=== PATIENT | male | born 1940 | race Caucasian/White ===

== ENCOUNTER 2017-06-18 11:50 | Inpatient (IN) | payer MEDICARE, MEDICAID ==
[~2017-06-18] VITALS: Ht 182.9 cm; Wt 84.1 kg
[~2017-06-18 11:50] MED LIST: ALBU18HF2 IH; ALBU8.5H8 IH; APIX5TAB3 PO; BUDE10.2 INH; BUSP10TA10 PO; FLO0.4C PO; FURO-150 PO; GABA600T2 PO; IPRA3AMP9 IH; MUPI22OI30 NAS; NEBI5TAB5 PO; OMEP-84 PO; POTA10CA44 PO; PRED10TA23 PO; ROFL500T7 PO; VALS160T2 PO
[2017-06-18] MEDS ORDERED: methylPREDNISolone sod succ 125mg/2ml vial IV ONE ×2 (12:10→19:30)
[2017-06-18] MEDS ORDERED: LORazepam 2 mg/ml vial IV ONE ×2 (12:10→19:30)
[2017-06-18] MEDS ORDERED: albuterol 2.5 MG/3 ML nebule CONTNEB PRN (12:10)
[2017-06-18 12:25] LABS: ABG BASE EXCESS -3.4 mmol/L (-2.0-3.0); ABG HCO3 19.3 mmol/L (22.0-26.0); ABG OXYGEN SATURATION 97.1 % (95-98); ABG PCO2 (T) 29.7 mmHg (35.0-48.0); ABG PH (T) 7.434 (7.350-7.450); ABG PO2 (T) 93.3 mmHg (83-108); ALLEN'S TEST Positive; FCOHb 0.7 % (0.5-1.5); FLOW 6 L/min; FMetHb 0.2 % (0.3-1.12); FO2Hb 96.2 % (94-100); PATIENT TEMPERATURE 37.6
[2017-06-18 12:47] LABS: BASOPHILS % (AUTO) 0.1 % (0-1); EOSINOPHILS % (AUTO) 0 % (0-6); HEMATOCRIT 41.1 % (42.0-52.0); HEMOGLOBIN 13.7 g/dl (14.0-17.9); LYMPHOCYTES # (AUTO) 0.8 X10'3 (1.1-4.8); LYMPHOCYTES % (AUTO) 4.9 % (21-51); MEAN CORPUSCULAR HEMOGLOBIN 27.2 PG (27.0-31.0); MEAN CORPUSCULAR HGB CONC 33.3 % (33.0-36.5); MEAN CORPUSCULAR VOLUME 81.8 FL (78-98); MEAN PLATELET VOLUME 6.9 FL (7.4-10.4); MONOCYTES # (AUTO) 1.4 X10'3 (0-0.9); PLATELET COUNT 223 X10'3 (140-440); RED BLOOD COUNT 5.03 X10'6 (4.70-6.10); RED CELL DISTRIBUTION WIDTH 19.4 % (11.5-14.5); WHITE BLOOD COUNT 17.3 X10'3 (4.5-11.0)
[2017-06-18] MEDS ORDERED: levoFLOXACIN-Levaquin 750MG/D5 150 ML IV ONE (12:50)
[2017-06-18] MEDS ORDERED: furosemide 10 MG/1 ML 10ml inj IV ONE (12:50)
[2017-06-18 13:09] LABS: ALANINE AMINOTRANSFERASE 33 U/L (12-78); ALBUMIN 3.6 G/DL (3.4-5.0); ALKALINE PHOSPHATASE 79 IU/L (46-116); ANION GAP 14 (8-16); ASPARTATE AMINO TRANSFERASE 22 U/L (10-37); BILIRUBIN,TOTAL 0.7 MG/DL (0.1-1.0); BLOOD UREA NITROGEN 28 MG/DL (7-18); BUN/CREATININE RATIO 25.5 (5.4-32.0); CALCIUM 8.8 MG/DL (8.5-10.1); CHLORIDE 103 MMOL/L (99-107); GLUCOSE 147 MG/DL (70-104); POTASSIUM 3.4 MMOL/L (3.5-5.1); SODIUM 140 MMOL/L (135-145); TOTAL CARBON DIOXIDE 23.1 MMOL/L (24-32); TOTAL PROTEIN 7.1 G/DL (6.4-8.2); eGFR 65 ML/MIN
[2017-06-18 13:15] LABS: ANISOCYTOSIS 2+; PLATELET ESTIMATE NORMAL; TOTAL CELLS COUNTED 100
[2017-06-18 13:16] LABS: ELLIPTOCYTES FEW
[2017-06-18] MEDS ORDERED: non-formulary drug (Albuterol Sulfate (Ventolin Hfa) 2 PUFF) IH PRN (13:45)
[2017-06-18] MEDS ORDERED: albuterol 2.5 MG/3 ML nebule NEB PRN (13:45)
[2017-06-18 13:51] LABS: ABG BASE EXCESS -3.1 mmol/L (-2.0-3.0); ABG HCO3 20.2 mmol/L (22.0-26.0); ABG OXYGEN SATURATION 96.4 % (95-98); ABG PO2 (T) 86.7 mmHg (83-108); ALLEN'S TEST Positive; FCOHb 0.7 % (0.5-1.5); FLOW 32 L/min; FMetHb 0.2 % (0.3-1.12); FO2Hb 95.5 % (94-100); PATIENT TEMPERATURE 37.6; TIDAL VOLUME 771 mL
[2017-06-18] MEDS ORDERED: magnesium hydroxide 30ml (MOM) UD suspension PO PRN (14:40)
[2017-06-18] MEDS ORDERED: mag hydrox/Alum hydrox/simeth 30ml oral suspension PO PRN (14:40)
[2017-06-18] MEDS ORDERED: potassium Cl 40MEQ/NS 500ml 500 ML IV PRN ×4 (14:40→22:25)
[2017-06-18] MEDS ORDERED: HYDROcodone/acetaminophen 10/325mg tab PO PRN (14:40)
[2017-06-18] MEDS ORDERED: potassium Cl 20 mEq SR tablet PO PRN ×3 (14:40→22:25)
[2017-06-18] MEDS ORDERED: magnesium 2GM in 50ml NS 50 ML IV PRN ×2 (14:40→22:25)
[2017-06-18] MEDS ORDERED: magnesium 4gm in 100ml NS 100 ML IV PRN ×2 (14:40→22:25)
[2017-06-18] MEDS ORDERED: magnesium Cl slow-release 64mg tablet PO PRN (14:40)
[2017-06-18] MEDS ORDERED: acetaminophen 325mg tablet PO PRN (14:40)
[2017-06-18] MEDS ORDERED: HYDROcodone/acetaminophen 5mg/325mg tablet PO PRN (14:40)
[2017-06-18] MEDS: ipratropium/albuterol 3ml nebule IH SCH ×2 (15:00→20:00)
[2017-06-18 15:11] LABS: CLARITY,URINE SLIGHTLY CLOUDY (Clear); COLOR,URINE YELLOW (Yellow); GLUCOSE, URINE NEGATIVE (Neg); KETONES,URINE 15 mg/dl (Neg); LEUKOCYTE ESTERASE ,URINE NEGATIVE (Neg); NITRITES, URINE NEGATIVE (Neg); OCCULT BLOOD,URINE TRACE-LYSED (Neg); PH,URINE 5.5 (4.8-8.0); PROTEIN,URINE 30 mg/dl (Neg); UROBILINOGEN,URINE 0.2 E.U/dL (0.2-1.0)
[2017-06-18 15:19] LABS: UA COLLECTION TYPE FOLEY CATH
[2017-06-18 15:21] LABS: HYALINE CASTS >30 /LPF (NEGATIVE); MUCUS STRANDS MANY /LPF (Neg); SQUAMOUS EPITHELIAL CELL,UR FEW /LPF (FEW); TRANSITIONAL EPI CELLS,URINE FEW /HPF
[2017-06-18 15:22] LABS: COARSE GRANULAR CAST 0-3 /LPF (NEGATIVE); FINE GRANULAR CAST 0-3 /LPF (NEGATIVE)
[2017-06-18 15:23] LABS: BACTERIA,URINE 1+ /HPF (Neg); RBC,URINE 0-2 /HPF (0-2); WBC,URINE 0-4 /HPF (0-4)
[2017-06-18] MEDS ORDERED: ondansetron/PF 4mg/2ml inj IV ONE (15:35)
[2017-06-18] MEDS: gabapentin 300mg capsule PO SCH ×2 (17:32→21:08)
[2017-06-18 19:00] VITALS: BP 134/70
[2017-06-18] MEDS ORDERED: LORazepam 0.5 MG tablet PO PRN (19:30)
[2017-06-18] MEDS ORDERED: LIDOcaine Viscous 15ml cup TP PRN (19:30)
[2017-06-18] MEDS ORDERED: ipratropium/albuterol 3ml nebule NEB PRN (19:30)
[2017-06-18] MEDS ORDERED: hydrocortisone acetate 25mg rectal suppository RC PRN (19:30)
[2017-06-18] MEDS ORDERED: iohexol 350MG/ML 100ml bottle IV ONE (19:46)
[2017-06-18] MEDS ORDERED: pantoprazole 40mg Tablet.DR PO SCH (20:00)
[2017-06-18] MEDS ORDERED: furosemide 40mg/4ml inj IV SCH (20:00)
[2017-06-18] MEDS ORDERED: heparin, porcine 5000 units/ml vial SQ SCH (20:00)
[2017-06-18] MEDS: methylPREDNISolone sod succ 125mg/2ml vial IV SCH (21:07)
[2017-06-18] MEDS: pantoprazole 40 MG vial IV SCH (21:08)
[2017-06-18] MEDS: busPIRone 5mg tablet PO SCH (21:08)
[2017-06-18] MEDS: furosemide 40mg/4ml inj IV SCH (21:08)
[2017-06-18] MEDS: apixaban 5mg tablet PO SCH (21:08)
[2017-06-18] MEDS: mupirocin 2% ointment 22GM TP SCH (21:10)
[2017-06-18] MEDS ORDERED: metoclopramide 5 mg/ml inj IV PRN (21:30)
[2017-06-18] MEDS: metoclopramide 5 mg/ml inj IV PRN (21:39)
[2017-06-18 23:00] VITALS: BP 120/52
[2017-06-18] MEDS: ipratropium/albuterol 3ml nebule NEB PRN (23:53)
[2017-06-19 01:07] LABS: INR 1.1 INR; PROTHROMBIN TIME 10.9 SECONDS (9.0-12.0)
[2017-06-19 01:14] LABS: ALBUMIN 3.2 G/DL (3.4-5.0); ANION GAP 13 (8-16); BLOOD UREA NITROGEN 32 MG/DL (7-18); BUN/CREATININE RATIO 25.8 (5.4-32.0); CALCIUM 8.3 MG/DL (8.5-10.1); CHLORIDE 104 MMOL/L (99-107); CREATININE 1.24 MG/DL (0.60-1.10); GLUCOSE 246 MG/DL (70-104); MAGNESIUM 2.2 MG/DL (1.5-2.4); POTASSIUM 3.2 MMOL/L (3.5-5.1); SODIUM 141 MMOL/L (135-145); TOTAL CARBON DIOXIDE 23.6 MMOL/L (24-32); eGFR 57 ML/MIN
[2017-06-19 01:26] LABS: BASOPHILS % (AUTO) 0.2 % (0-1); EOSINOPHILS % (AUTO) 0 % (0-6); HEMATOCRIT 38.6 % (42.0-52.0); HEMOGLOBIN 12.6 g/dl (14.0-17.9); LYMPHOCYTES # (AUTO) 0.4 X10'3 (1.1-4.8); LYMPHOCYTES % (AUTO) 2.7 % (21-51); MEAN CORPUSCULAR HEMOGLOBIN 27.1 PG (27.0-31.0); MEAN CORPUSCULAR HGB CONC 32.7 % (33.0-36.5); MEAN CORPUSCULAR VOLUME 82.9 FL (78-98); MEAN PLATELET VOLUME 7.5 FL (7.4-10.4); MONOCYTES # (AUTO) 0.3 X10'3 (0-0.9); MONOCYTES % (AUTO) 1.8 % (2-12); NEUTROPHILS # (AUTO) 15.7 X10'3 (1.8-7.7); NEUTROPHILS % (AUTO) 95.3 % (42-75); PLATELET COUNT 189 X10'3 (140-440); RED BLOOD COUNT 4.66 X10'6 (4.70-6.10); RED CELL DISTRIBUTION WIDTH 17.9 % (11.5-14.5); WHITE BLOOD COUNT 16.4 X10'3 (4.5-11.0)
[2017-06-19] MEDS: LORazepam 0.5 MG tablet PO PRN ×2 (01:50→21:41)
[2017-06-19] MEDS: potassium Cl 20 mEq SR tablet PO PRN ×3 (01:50→12:05)
[2017-06-19] MEDS: methylPREDNISolone sod succ 125mg/2ml vial IV SCH ×4 (01:51→19:37)
[2017-06-19 03:00] VITALS: BP 119/57
[2017-06-19] MEDS: ipratropium/albuterol 3ml nebule NEB PRN (04:09)
[2017-06-19] MEDS: pantoprazole 40 MG vial IV SCH ×2 (07:41→19:32)
[2017-06-19] MEDS: furosemide 40mg/4ml inj IV SCH ×2 (07:43→19:32)
[2017-06-19] MEDS: gabapentin 300mg capsule PO SCH ×4 (08:00→21:42)
[2017-06-19] MEDS: mupirocin 2% ointment 22GM TP SCH ×2 (08:00→13:00)
[2017-06-19] MEDS: K and/or MAG REPLACEMENT MC SCH (08:00)
[2017-06-19] MEDS: levoFLOXACIN-Levaquin 750MG/D5 150 ML IV SCH (08:03)
[2017-06-19] MEDS ORDERED: iohexol 300mg/ml 100ml inj. ONE ×2 (08:55→16:39)
[2017-06-19] MEDS: ipratropium/albuterol 3ml nebule IH SCH ×4 (09:03→19:00)
[2017-06-19 11:00] VITALS: BP 138/67
[2017-06-19] MEDS: fluticasone/vilanterol 200mcg/25mcg inhaler IH SCH (11:08)
[2017-06-19] MEDS: metoclopramide 5 mg/ml inj IV PRN (11:48)
[2017-06-19] MEDS: tamsulosin 0.4mg capsule PO SCH (12:00)
[2017-06-19] MEDS: busPIRone 5mg tablet PO SCH ×2 (12:01→19:32)
[2017-06-19] MEDS: apixaban 5mg tablet PO SCH ×2 (12:04→19:32)
[2017-06-19] MEDS: potassium chloride 10mEq ER tablet PO SCH (12:05)
[2017-06-19] MEDS ORDERED: albuterol 2.5 MG/3 ML nebule NEB PRN (12:45)
[2017-06-19] MEDS: roflumilast 500mcg tablet PO SCH (13:26)
[2017-06-19] MEDS: piperacillin/tazo 4.5gm/100ml 100 ML IV SCH ×3 (13:33→16:00)
[2017-06-19 15:00] VITALS: BP 114/61
[2017-06-19] MEDS: ipratropium/albuterol 3ml nebule NEB SCH ×3 (15:47→23:34)
[2017-06-19 19:00] VITALS: BP 97/50
[2017-06-19] MEDS: lactobacillus rhamnosus 10,000 MMU CELLS/CAPSULE PO SCH (19:32)
[2017-06-19] MEDS: ondansetron/PF 4mg/2ml inj IV PRN (19:37)
[2017-06-19 23:00] VITALS: BP 104/53
[2017-06-20] VITALS (17 sets, daily range): BP systolic 86–119; BP diastolic 40–99
[2017-06-20] MEDS: piperacillin/tazo 4.5gm/100ml 100 ML IV SCH ×3 (00:50→16:43)
[2017-06-20] MEDS: methylPREDNISolone sod succ 125mg/2ml vial IV SCH ×3 (01:52→13:11)
[2017-06-20] MEDS: ipratropium/albuterol 3ml nebule NEB SCH ×6 (03:30→23:52)
[2017-06-20 06:51] LABS: BASOPHILS % (AUTO) 0 % (0-1); EOSINOPHILS # (AUTO) 0.3 X10'3 (0-0.9); EOSINOPHILS % (AUTO) 1.4 % (0-6); HEMOGLOBIN 13.4 g/dl (14.0-17.9); LYMPHOCYTES # (AUTO) 0.6 X10'3 (1.1-4.8); LYMPHOCYTES % (AUTO) 3.3 % (21-51); MEAN CORPUSCULAR HEMOGLOBIN 27.8 PG (27.0-31.0); MEAN CORPUSCULAR HGB CONC 33.5 % (33.0-36.5); MEAN CORPUSCULAR VOLUME 82.8 FL (78-98); MEAN PLATELET VOLUME 7.3 FL (7.4-10.4); MONOCYTES # (AUTO) 1.2 X10'3 (0-0.9); MONOCYTES % (AUTO) 6.6 % (2-12); NEUTROPHILS # (AUTO) 16.2 X10'3 (1.8-7.7); NEUTROPHILS % (AUTO) 88.7 % (42-75); PLATELET COUNT 231 X10'3 (140-440); RED BLOOD COUNT 4.83 X10'6 (4.70-6.10); RED CELL DISTRIBUTION WIDTH 19.1 % (11.5-14.5); WHITE BLOOD COUNT 18.3 X10'3 (4.5-11.0)
[2017-06-20 07:03] LABS: PROTHROMBIN TIME 10.1 SECONDS (9.0-12.0)
[2017-06-20 07:04] LABS: ALBUMIN 3.4 G/DL (3.4-5.0); ANION GAP 13 (8-16); BLOOD UREA NITROGEN 52 MG/DL (7-18); BUN/CREATININE RATIO 31.3 (5.4-32.0); CALCIUM 8.8 MG/DL (8.5-10.1); CHLORIDE 106 MMOL/L (99-107); CREATININE 1.66 MG/DL (0.60-1.10); GLUCOSE 163 MG/DL (70-104); MAGNESIUM 2.6 MG/DL (1.5-2.4); POTASSIUM 3.4 MMOL/L (3.5-5.1); SODIUM 144 MMOL/L (135-145); TOTAL CARBON DIOXIDE 24.9 MMOL/L (24-32); eGFR 40 ML/MIN
[2017-06-20] MEDS: fluticasone/vilanterol 200mcg/25mcg inhaler IH SCH (07:20)
[2017-06-20] MEDS: K and/or MAG REPLACEMENT MC SCH (08:00)
[2017-06-20] MEDS: levoFLOXACIN-Levaquin 750MG/D5 150 ML IV SCH (08:28)
[2017-06-20] MEDS: tamsulosin 0.4mg capsule PO SCH (08:29)
[2017-06-20] MEDS: busPIRone 5mg tablet PO SCH ×2 (08:29→21:08)
[2017-06-20] MEDS: lactobacillus rhamnosus 10,000 MMU CELLS/CAPSULE PO SCH ×2 (08:29→21:08)
[2017-06-20] MEDS: potassium chloride 10mEq ER tablet PO SCH (08:29)
[2017-06-20] MEDS: gabapentin 300mg capsule PO SCH ×4 (08:29→21:00)
[2017-06-20] MEDS: furosemide 40mg/4ml inj IV SCH (08:33)
[2017-06-20] MEDS: LORazepam 0.5 MG tablet PO PRN (08:43)
[2017-06-20] MEDS: roflumilast 500mcg tablet PO SCH (08:44)
[2017-06-20] MEDS: pantoprazole 40 MG vial IV SCH ×2 (08:49→21:07)
[2017-06-20] MEDS ORDERED: diltiazem 5mg/ml 5ml inj. IV ONE (12:15)
[2017-06-20] MEDS ORDERED: diltiazem-NS 100mg/100ml 100 ML IV SCH ×2 (12:15→18:20)
[2017-06-20] MEDS: apixaban 5mg tablet PO SCH ×2 (12:18→21:08)
[2017-06-20] MEDS: potassium Cl oral solution 20 MEQ/15 ML PO SCH ×3 (12:19→21:08)
[2017-06-20 14:25] LABS: C DIFF ANTIGEN NEGATIVE (NEGATIVE); C DIFF SPECIMEN=DIARRHEA? ACCEPTABLE; C DIFFICILE TOXINS A&B NEGATIVE (Neg)
[2017-06-21] VITALS (11 sets, daily range): BP systolic 99–130; BP diastolic 43–62
[2017-06-21] MEDS: metroNIDAZOLE-Flagyl 500mg/NS 100 ML IV SCH ×3 (00:25→15:28)
[2017-06-21] MEDS: ipratropium/albuterol 3ml nebule NEB SCH ×6 (03:42→23:41)
[2017-06-21 05:32] LABS: BASOPHILS % (AUTO) 0 % (0-1); EOSINOPHILS # (AUTO) 0.2 X10'3 (0-0.9); EOSINOPHILS % (AUTO) 1.2 % (0-6); HEMOGLOBIN 12.6 g/dl (14.0-17.9); INR 1.1 INR; LYMPHOCYTES # (AUTO) 0.9 X10'3 (1.1-4.8); LYMPHOCYTES % (AUTO) 4.9 % (21-51); MEAN CORPUSCULAR HEMOGLOBIN 27.8 PG (27.0-31.0); MEAN CORPUSCULAR VOLUME 81.7 FL (78-98); MEAN PLATELET VOLUME 7.5 FL (7.4-10.4); MONOCYTES # (AUTO) 1.4 X10'3 (0-0.9); NEUTROPHILS # (AUTO) 15.3 X10'3 (1.8-7.7); NEUTROPHILS % (AUTO) 85.9 % (42-75); PLATELET COUNT 234 X10'3 (140-440); PROTHROMBIN TIME 11.1 SECONDS (9.0-12.0); RED BLOOD COUNT 4.52 X10'6 (4.70-6.10); RED CELL DISTRIBUTION WIDTH 19.1 % (11.5-14.5); WHITE BLOOD COUNT 17.8 X10'3 (4.5-11.0)
[2017-06-21 05:45] LABS: ALBUMIN 3.1 G/DL (3.4-5.0); ANION GAP 16 (8-16); BLOOD UREA NITROGEN 67 MG/DL (7-18); CALCIUM 8.2 MG/DL (8.5-10.1); CHLORIDE 107 MMOL/L (99-107); CREATININE 1.97 MG/DL (0.60-1.10); GLUCOSE 166 MG/DL (70-104); MAGNESIUM 2.5 MG/DL (1.5-2.4); POTASSIUM 3.3 MMOL/L (3.5-5.1); SODIUM 144 MMOL/L (135-145); TOTAL CARBON DIOXIDE 20.8 MMOL/L (24-32); eGFR 33 ML/MIN
[2017-06-21] MEDS: gabapentin 300mg capsule PO SCH ×4 (07:26→19:49)
[2017-06-21] MEDS: levoFLOXACIN-Levaquin 750MG/D5 150 ML IV SCH (07:27)
[2017-06-21] MEDS ORDERED: furosemide 20 MG/2 ML vial IV SCH (08:00)
[2017-06-21] MEDS: K and/or MAG REPLACEMENT MC SCH (08:00)
[2017-06-21] MEDS: fluticasone/vilanterol 200mcg/25mcg inhaler IH SCH (08:12)
[2017-06-21] MEDS ORDERED: predniSONE 20 mg tablet PO SCH (08:30)
[2017-06-21] MEDS ORDERED: hydrocortisone acetate 25mg rectal suppository RC PRN (08:45)
[2017-06-21] MEDS: lactobacillus rhamnosus 10,000 MMU CELLS/CAPSULE PO SCH ×2 (08:50→19:48)
[2017-06-21] MEDS: pantoprazole 40 MG vial IV SCH ×2 (08:50→19:47)
[2017-06-21] MEDS: busPIRone 5mg tablet PO SCH ×2 (08:50→19:48)
[2017-06-21] MEDS: tamsulosin 0.4mg capsule PO SCH (08:50)
[2017-06-21] MEDS: apixaban 5mg tablet PO SCH ×2 (08:50→19:49)
[2017-06-21] MEDS: potassium chloride 10mEq ER tablet PO SCH (08:50)
[2017-06-21] MEDS: roflumilast 500mcg tablet PO SCH (09:05)
[2017-06-21] MEDS: diltiazem 30mg tablet PO SCH ×3 (10:40→19:48)
[2017-06-21] MEDS: potassium Cl oral solution 20 MEQ/15 ML PO SCH ×2 (15:28→19:48)
[2017-06-21] MEDS: ondansetron/PF 4mg/2ml inj IV PRN (19:48)
[2017-06-22] MEDS: potassium Cl oral solution 20 MEQ/15 ML PO SCH (00:04)
[2017-06-22] MEDS: metroNIDAZOLE-Flagyl 500mg/NS 100 ML IV SCH ×3 (00:04→17:26)
[2017-06-22 02:00] VITALS: BP 115/55
[2017-06-22] MEDS: diltiazem 30mg tablet PO SCH ×4 (02:25→21:50)
[2017-06-22] MEDS: ondansetron/PF 4mg/2ml inj IV PRN ×3 (02:25→18:54)
[2017-06-22] MEDS: ipratropium/albuterol 3ml nebule NEB SCH ×6 (03:00→23:29)
[2017-06-22 05:50] LABS: BASOPHILS % (AUTO) 0.1 % (0-1); EOSINOPHILS % (AUTO) 0 % (0-6); HEMATOCRIT 35.3 % (42.0-52.0); HEMOGLOBIN 11.6 g/dl (14.0-17.9); LYMPHOCYTES % (AUTO) 7.9 % (21-51); MEAN CORPUSCULAR HEMOGLOBIN 27.2 PG (27.0-31.0); MEAN CORPUSCULAR HGB CONC 33.1 % (33.0-36.5); MEAN CORPUSCULAR VOLUME 82.3 FL (78-98); MEAN PLATELET VOLUME 7.3 FL (7.4-10.4); MONOCYTES # (AUTO) 1.5 X10'3 (0-0.9); MONOCYTES % (AUTO) 12.1 % (2-12); NEUTROPHILS % (AUTO) 79.9 % (42-75); PLATELET COUNT 234 X10'3 (140-440); RED BLOOD COUNT 4.28 X10'6 (4.70-6.10); RED CELL DISTRIBUTION WIDTH 19.3 % (11.5-14.5); WHITE BLOOD COUNT 12.5 X10'3 (4.5-11.0)
[2017-06-22 06:00] VITALS: BP 117/63
[2017-06-22 06:03] LABS: INR 1.1 INR; PROTHROMBIN TIME 11.3 SECONDS (9.0-12.0)
[2017-06-22 06:34] LABS: ALBUMIN 2.9 G/DL (3.4-5.0); ANION GAP 13 (8-16); BLOOD UREA NITROGEN 70 MG/DL (7-18); BUN/CREATININE RATIO 37.6 (5.4-32.0); CALCIUM 8.5 MG/DL (8.5-10.1); CHLORIDE 111 MMOL/L (99-107); CREATININE 1.86 MG/DL (0.60-1.10); GLUCOSE 155 MG/DL (70-104); MAGNESIUM 2.8 MG/DL (1.5-2.4); POTASSIUM 3.7 MMOL/L (3.5-5.1); SODIUM 145 MMOL/L (135-145); TOTAL CARBON DIOXIDE 20.9 MMOL/L (24-32); eGFR 35 ML/MIN
[2017-06-22] MEDS: metoclopramide 5 mg/ml inj IV PRN ×2 (07:15→20:41)
[2017-06-22] MEDS: fluticasone/vilanterol 200mcg/25mcg inhaler IH SCH (07:47)
[2017-06-22] MEDS: gabapentin 300mg capsule PO SCH ×4 (08:00→21:00)
[2017-06-22] MEDS: K and/or MAG REPLACEMENT MC SCH (08:00)
[2017-06-22] MEDS: pantoprazole 40 MG vial IV SCH ×2 (08:27→20:49)
[2017-06-22] MEDS: levoFLOXACIN-Levaquin 750MG/D5 150 ML IV SCH (09:43)
[2017-06-22 11:00] VITALS: BP 121/53
[2017-06-22] MEDS: busPIRone 5mg tablet PO SCH ×2 (11:17→20:00)
[2017-06-22] MEDS: lactobacillus rhamnosus 10,000 MMU CELLS/CAPSULE PO SCH ×2 (11:17→21:49)
[2017-06-22] MEDS: potassium chloride 10mEq ER tablet PO SCH (11:17)
[2017-06-22] MEDS: roflumilast 500mcg tablet PO SCH (11:19)
[2017-06-22] MEDS: apixaban 5mg tablet PO SCH ×2 (11:19→21:49)
[2017-06-22] MEDS: tamsulosin 0.4mg capsule PO SCH (11:20)
[2017-06-22] MEDS: predniSONE 20 mg tablet PO SCH (11:21)
[2017-06-22] MEDS: simethicone 80mg chew tab PO SCH ×2 (12:32→20:58)
[2017-06-22 15:00] VITALS: BP 116/55
[2017-06-22 19:00] VITALS: BP 133/57
[2017-06-22 23:00] VITALS: BP 125/50
[2017-06-23] MEDS: metroNIDAZOLE-Flagyl 500mg/NS 100 ML IV SCH ×3 (00:56→15:56)
[2017-06-23] MEDS: diltiazem 30mg tablet PO SCH ×4 (02:00→20:00)
[2017-06-23] MEDS: ipratropium/albuterol 3ml nebule NEB SCH ×6 (02:59→22:36)
[2017-06-23 03:00] VITALS: BP 151/52
[2017-06-23 05:11] LABS: BASOPHILS % (AUTO) 0.2 % (0-1); EOSINOPHILS # (AUTO) 0.2 X10'3 (0-0.9); EOSINOPHILS % (AUTO) 1.5 % (0-6); HEMATOCRIT 35.7 % (42.0-52.0); HEMOGLOBIN 11.8 g/dl (14.0-17.9); LYMPHOCYTES % (AUTO) 9.1 % (21-51); MEAN CORPUSCULAR HEMOGLOBIN 27.4 PG (27.0-31.0); MEAN CORPUSCULAR HGB CONC 33.1 % (33.0-36.5); MEAN CORPUSCULAR VOLUME 82.6 FL (78-98); MEAN PLATELET VOLUME 7.5 FL (7.4-10.4); NEUTROPHILS # (AUTO) 8.7 X10'3 (1.8-7.7); NEUTROPHILS % (AUTO) 80.2 % (42-75); PLATELET COUNT 210 X10'3 (140-440); RED BLOOD COUNT 4.32 X10'6 (4.70-6.10); RED CELL DISTRIBUTION WIDTH 19.1 % (11.5-14.5); WHITE BLOOD COUNT 10.9 X10'3 (4.5-11.0)
[2017-06-23 05:23] LABS: INR 1.1 INR; PROTHROMBIN TIME 11.1 SECONDS (9.0-12.0)
[2017-06-23] MEDS: ondansetron/PF 4mg/2ml inj IV PRN ×3 (05:31→17:36)
[2017-06-23 05:43] LABS: ANION GAP 12 (8-16); BLOOD UREA NITROGEN 49 MG/DL (7-18); BUN/CREATININE RATIO 35.3 (5.4-32.0); CALCIUM 8.6 MG/DL (8.5-10.1); CHLORIDE 112 MMOL/L (99-107); CREATININE 1.39 MG/DL (0.60-1.10); GLUCOSE 144 MG/DL (70-104); MAGNESIUM 2.7 MG/DL (1.5-2.4); POTASSIUM 3.1 MMOL/L (3.5-5.1); SODIUM 147 MMOL/L (135-145); eGFR 50 ML/MIN
[2017-06-23 06:00] VITALS: BP 137/59
[2017-06-23] MEDS: fluticasone/vilanterol 200mcg/25mcg inhaler IH SCH (07:13)
[2017-06-23] MEDS ORDERED: potassium Cl 40MEQ/NS 500ml 500 ML IV PRN ×2 (07:55)
[2017-06-23] MEDS ORDERED: magnesium 4gm in 100ml NS 100 ML IV PRN (07:55)
[2017-06-23] MEDS ORDERED: LIDOcaine 1% 30ml vial 5 ML in potassium Cl 40MEQ/NS 500ml 500 ML IV ONE (07:55)
[2017-06-23] MEDS ORDERED: magnesium 2GM in 50ml NS 50 ML IV PRN (07:55)
[2017-06-23] MEDS: levoFLOXACIN-Levaquin 750MG/D5 150 ML IV SCH (07:58)
[2017-06-23] MEDS: pantoprazole 40 MG vial IV SCH ×2 (07:59→21:55)
[2017-06-23] MEDS: tamsulosin 0.4mg capsule PO SCH (08:00)
[2017-06-23] MEDS: potassium chloride 10mEq ER tablet PO SCH (08:00)
[2017-06-23] MEDS: lactobacillus rhamnosus 10,000 MMU CELLS/CAPSULE PO SCH ×2 (08:00→20:00)
[2017-06-23] MEDS: apixaban 5mg tablet PO SCH ×2 (08:00→21:55)
[2017-06-23] MEDS: busPIRone 5mg tablet PO SCH ×2 (08:00→21:55)
[2017-06-23] MEDS: gabapentin 300mg capsule PO SCH ×4 (08:00→21:00)
[2017-06-23] MEDS: roflumilast 500mcg tablet PO SCH (08:00)
[2017-06-23] MEDS: K and/or MAG REPLACEMENT MC SCH (08:00)
[2017-06-23] MEDS: simethicone 80mg chew tab PO SCH ×3 (08:08→21:55)
[2017-06-23] MEDS: predniSONE 20 mg tablet PO SCH (08:30)
[2017-06-23 11:00] VITALS: BP 127/59
[2017-06-23 15:00] VITALS: BP 141/60
[2017-06-23 19:00] VITALS: BP 139/53
[2017-06-23 23:00] VITALS: BP 138/60
[2017-06-24] MEDS: metroNIDAZOLE-Flagyl 500mg/NS 100 ML IV SCH ×3 (00:01→16:11)
[2017-06-24] MEDS: ondansetron/PF 4mg/2ml inj IV PRN ×3 (00:01→12:43)
[2017-06-24] MEDS: diltiazem 30mg tablet PO SCH ×4 (02:19→20:07)
[2017-06-24 02:53] LABS: BASOPHILS % (AUTO) 0.1 % (0-1); EOSINOPHILS # (AUTO) 0.3 X10'3 (0-0.9); HEMATOCRIT 36.1 % (42.0-52.0); HEMOGLOBIN 11.9 g/dl (14.0-17.9); LYMPHOCYTES # (AUTO) 1.1 X10'3 (1.1-4.8); MEAN CORPUSCULAR HEMOGLOBIN 27.2 PG (27.0-31.0); MEAN CORPUSCULAR HGB CONC 32.8 % (33.0-36.5); MEAN CORPUSCULAR VOLUME 82.8 FL (78-98); MEAN PLATELET VOLUME 7.5 FL (7.4-10.4); MONOCYTES # (AUTO) 0.8 X10'3 (0-0.9); MONOCYTES % (AUTO) 7.8 % (2-12); NEUTROPHILS # (AUTO) 7.9 X10'3 (1.8-7.7); NEUTROPHILS % (AUTO) 78.1 % (42-75); PLATELET COUNT 221 X10'3 (140-440); RED BLOOD COUNT 4.36 X10'6 (4.70-6.10); RED CELL DISTRIBUTION WIDTH 19.1 % (11.5-14.5); WHITE BLOOD COUNT 10.1 X10'3 (4.5-11.0)
[2017-06-24] MEDS: ipratropium/albuterol 3ml nebule NEB SCH ×6 (02:53→23:23)
[2017-06-24 03:00] VITALS: BP 145/62
[2017-06-24 03:09] LABS: MAGNESIUM 2.5 MG/DL (1.5-2.4)
[2017-06-24 05:38] LABS: ALBUMIN 2.9 G/DL (3.4-5.0); ANION GAP 9 (8-16); BLOOD UREA NITROGEN 29 MG/DL (7-18); BUN/CREATININE RATIO 26.4 (5.4-32.0); CHLORIDE 115 MMOL/L (99-107); GLUCOSE 123 MG/DL (70-104); SODIUM 150 MMOL/L (135-145); TOTAL CARBON DIOXIDE 25.8 MMOL/L (24-32); eGFR 65 ML/MIN
[2017-06-24 06:00] VITALS: BP 141/57
[2017-06-24] MEDS: levoFLOXACIN-Levaquin 750MG/D5 150 ML IV SCH (06:37)
[2017-06-24] MEDS: simethicone 80mg chew tab PO SCH ×3 (07:38→20:08)
[2017-06-24] MEDS: gabapentin 300mg capsule PO SCH ×4 (08:00→20:09)
[2017-06-24] MEDS: potassium chloride 10mEq ER tablet PO SCH (08:00)
[2017-06-24] MEDS: fluticasone/vilanterol 200mcg/25mcg inhaler IH SCH (08:00)
[2017-06-24] MEDS: lactobacillus rhamnosus 10,000 MMU CELLS/CAPSULE PO SCH ×2 (08:00→20:08)
[2017-06-24] MEDS: tamsulosin 0.4mg capsule PO SCH (08:00)
[2017-06-24] MEDS: busPIRone 5mg tablet PO SCH ×2 (08:00→20:00)
[2017-06-24] MEDS: roflumilast 500mcg tablet PO SCH (08:00)
[2017-06-24] MEDS: apixaban 5mg tablet PO SCH (08:00)
[2017-06-24] MEDS: pantoprazole 40 MG vial IV SCH ×2 (08:29→20:10)
[2017-06-24] MEDS: predniSONE 20 mg tablet PO SCH (08:30)
[2017-06-24] MEDS: K and/or MAG REPLACEMENT MC SCH (08:40)
[2017-06-24] MEDS: LIDOcaine 1% 30ml vial 5 ML in potassium Cl 40MEQ/NS 500ml 500 ML IV PRN ×2 (09:43→14:56)
[2017-06-24 11:00] VITALS: BP 145/60
[2017-06-24] MEDS ORDERED: metoprolol tartrate 1mg/ml inj IV PRN (14:00)
[2017-06-24] MEDS: proCHLORperazine 10 MG/2 ml inj IV PRN (14:10)
[2017-06-24] MEDS: normal saline 1000ml 1,000 ML IV SCH (14:50)
[2017-06-24 15:00] VITALS: BP 139/55
[2017-06-24 15:18] LABS: ALBUMIN 2.7 G/DL (3.4-5.0); ANION GAP 8 (8-16); BLOOD UREA NITROGEN 25 MG/DL (7-18); CALCIUM 8.7 MG/DL (8.5-10.1); CHLORIDE 115 MMOL/L (99-107); CREATININE 1.04 MG/DL (0.60-1.10); GLUCOSE 110 MG/DL (70-104); POTASSIUM 3.2 MMOL/L (3.5-5.1); SODIUM 149 MMOL/L (135-145); TOTAL CARBON DIOXIDE 26.1 MMOL/L (24-32); eGFR 69 ML/MIN
[2017-06-24] MEDS ORDERED: DILT60TA3 (16:02)
[2017-06-24 19:00] VITALS: BP 157/63
[2017-06-24 23:00] VITALS: BP 145/62
[2017-06-25] VITALS (7 sets, daily range): BP systolic 138–154; BP diastolic 53–74
[2017-06-25] MEDS: diltiazem 30mg tablet PO SCH ×4 (02:35→20:18)
[2017-06-25] MEDS: ipratropium/albuterol 3ml nebule NEB SCH ×6 (03:00→23:46)
[2017-06-25 05:35] LABS: BASOPHILS % (AUTO) 0.3 % (0-1); EOSINOPHILS # (AUTO) 0.3 X10'3 (0-0.9); HEMATOCRIT 33.3 % (42.0-52.0); HEMOGLOBIN 10.8 g/dl (14.0-17.9); LYMPHOCYTES # (AUTO) 1.2 X10'3 (1.1-4.8); LYMPHOCYTES % (AUTO) 12.6 % (21-51); MEAN CORPUSCULAR HEMOGLOBIN 27.4 PG (27.0-31.0); MEAN CORPUSCULAR HGB CONC 32.6 % (33.0-36.5); MEAN PLATELET VOLUME 7.3 FL (7.4-10.4); MONOCYTES # (AUTO) 0.8 X10'3 (0-0.9); MONOCYTES % (AUTO) 8.1 % (2-12); NEUTROPHILS # (AUTO) 7.2 X10'3 (1.8-7.7); PLATELET COUNT 206 X10'3 (140-440); RED BLOOD COUNT 3.96 X10'6 (4.70-6.10); RED CELL DISTRIBUTION WIDTH 18.9 % (11.5-14.5); WHITE BLOOD COUNT 9.4 X10'3 (4.5-11.0)
[2017-06-25 05:59] LABS: ALANINE AMINOTRANSFERASE 36 U/L (12-78); ALBUMIN 2.5 G/DL (3.4-5.0); ALKALINE PHOSPHATASE 47 IU/L (46-116); ANION GAP 10 (8-16); ASPARTATE AMINO TRANSFERASE 23 U/L (10-37); BILIRUBIN,TOTAL 0.5 MG/DL (0.1-1.0); BLOOD UREA NITROGEN 17 MG/DL (7-18); BUN/CREATININE RATIO 17.9 (5.4-32.0); CALCIUM 8.2 MG/DL (8.5-10.1); CHLORIDE 115 MMOL/L (99-107); CREATININE 0.95 MG/DL (0.60-1.10); GLUCOSE 113 MG/DL (70-104); SODIUM 150 MMOL/L (135-145); TOTAL CARBON DIOXIDE 25.4 MMOL/L (24-32); eGFR 77 ML/MIN
[2017-06-25] MEDS: normal saline 1000ml 1,000 ML IV SCH ×4 (06:27→20:26)
[2017-06-25] MEDS: levoFLOXACIN-Levaquin 750MG/D5 150 ML IV SCH (06:57)
[2017-06-25] MEDS: pantoprazole 40 MG vial IV SCH ×2 (07:00→20:18)
[2017-06-25] MEDS: fluticasone/vilanterol 200mcg/25mcg inhaler IH SCH (08:00)
[2017-06-25] MEDS: simethicone 80mg chew tab PO SCH ×3 (08:00→20:18)
[2017-06-25] MEDS: tamsulosin 0.4mg capsule PO SCH (08:00)
[2017-06-25] MEDS: potassium chloride 10mEq ER tablet PO SCH (08:00)
[2017-06-25] MEDS: K and/or MAG REPLACEMENT MC SCH (08:00)
[2017-06-25] MEDS: gabapentin 300mg capsule PO SCH ×4 (08:00→20:27)
[2017-06-25] MEDS: lactobacillus rhamnosus 10,000 MMU CELLS/CAPSULE PO SCH ×2 (08:00→20:18)
[2017-06-25] MEDS: roflumilast 500mcg tablet PO SCH (08:00)
[2017-06-25] MEDS: busPIRone 5mg tablet PO SCH ×2 (08:00→20:00)
[2017-06-25] MEDS: metroNIDAZOLE-Flagyl 500mg/NS 100 ML IV SCH ×3 (08:30→16:03)
[2017-06-25] MEDS: predniSONE 20 mg tablet PO SCH (08:30)
[2017-06-25] MEDS: ondansetron/PF 4mg/2ml inj IV PRN (08:57)
[2017-06-25] MEDS ORDERED: ceFAZolin 1000mg inj ONE (13:54)
[2017-06-25] MEDS ORDERED: BUPIVAcaine/PF 2.5 mg/ml (0.25%) 30ml vial ONE (13:54)
[2017-06-25 14:41] LABS: ISTAT ANION GAP 6 (8-12); ISTAT BUN 13 mg/dL (6-19); ISTAT CL 115 mmol/L (99-107); ISTAT CREATININE 0.8 mg/dL (0.8-1.3); ISTAT GLUCOSE 88 mg/dL (70-104); ISTAT HGB 10.2 g/dl (14.0-18.0); ISTAT Hct 30 %PCV (42-52); ISTAT IONIZED CALCIUM 1.22 mmol/L (1.03-1.32); ISTAT K 4.5 mmol/L (3.5-5.1); ISTAT NA 147 mmol/L (135-145); ISTAT TOTAL CO2 26 mmol/L (24-32); ISTAT eGFR > 90 ML/MIN; POC BUN/CREATININE RATIO 16.3 (5.4-32.0)
[2017-06-25] MEDS: temazepam 15mg capsule PO PRN (21:09)
[2017-06-26] MEDS: ondansetron/PF 4mg/2ml inj IV PRN ×3 (00:10→21:33)
[2017-06-26] MEDS: metroNIDAZOLE-Flagyl 500mg/NS 100 ML IV SCH ×2 (00:10→08:31)
[2017-06-26] MEDS: diltiazem 30mg tablet PO SCH ×4 (02:43→19:05)
[2017-06-26 03:00] VITALS: BP 138/63
[2017-06-26] MEDS: ipratropium/albuterol 3ml nebule NEB SCH ×6 (03:00→23:47)
[2017-06-26 05:39] LABS: BASOPHILS % (AUTO) 0.4 % (0-1); EOSINOPHILS # (AUTO) 0.3 X10'3 (0-0.9); EOSINOPHILS % (AUTO) 3.7 % (0-6); HEMATOCRIT 33.7 % (42.0-52.0); LYMPHOCYTES % (AUTO) 11.4 % (21-51); MEAN CORPUSCULAR HEMOGLOBIN 27.4 PG (27.0-31.0); MEAN CORPUSCULAR HGB CONC 32.7 % (33.0-36.5); MEAN CORPUSCULAR VOLUME 83.8 FL (78-98); MEAN PLATELET VOLUME 7.4 FL (7.4-10.4); MONOCYTES # (AUTO) 0.8 X10'3 (0-0.9); MONOCYTES % (AUTO) 8.4 % (2-12); NEUTROPHILS # (AUTO) 6.8 X10'3 (1.8-7.7); NEUTROPHILS % (AUTO) 76.1 % (42-75); PLATELET COUNT 182 X10'3 (140-440); RED BLOOD COUNT 4.02 X10'6 (4.70-6.10); WHITE BLOOD COUNT 8.9 X10'3 (4.5-11.0)
[2017-06-26 05:45] LABS: ALANINE AMINOTRANSFERASE 39 U/L (12-78); ALBUMIN 2.4 G/DL (3.4-5.0); ALBUMIN/GLOBULIN RATIO 0.9 (1.1-1.5); ALKALINE PHOSPHATASE 46 IU/L (46-116); ANION GAP 8 (8-16); ASPARTATE AMINO TRANSFERASE 26 U/L (10-37); BILIRUBIN,TOTAL 0.5 MG/DL (0.1-1.0); BLOOD UREA NITROGEN 10 MG/DL (7-18); CALCIUM 7.9 MG/DL (8.5-10.1); CHLORIDE 116 MMOL/L (99-107); CREATININE 0.83 MG/DL (0.60-1.10); GLUCOSE 96 MG/DL (70-104); MAGNESIUM 1.7 MG/DL (1.5-2.4); SODIUM 150 MMOL/L (135-145); TOTAL CARBON DIOXIDE 26.4 MMOL/L (24-32); eGFR 90 ML/MIN
[2017-06-26 06:00] VITALS: BP 151/61
[2017-06-26 06:30] LABS: POTASSIUM 2.9 MMOL/L (3.5-5.1)
[2017-06-26] MEDS: normal saline 1000ml 1,000 ML IV SCH ×3 (06:50→21:34)
[2017-06-26] MEDS ORDERED: LIDOcaine 1% 30ml vial 5 ML in potassium Cl 40MEQ/NS 500ml 500 ML IV PRN (07:10)
[2017-06-26] MEDS: busPIRone 5mg tablet PO SCH ×2 (08:00→20:00)
[2017-06-26] MEDS: gabapentin 300mg capsule PO SCH ×4 (08:00→21:00)
[2017-06-26] MEDS: lactobacillus rhamnosus 10,000 MMU CELLS/CAPSULE PO SCH ×2 (08:00→19:05)
[2017-06-26] MEDS: tamsulosin 0.4mg capsule PO SCH (08:00)
[2017-06-26] MEDS: roflumilast 500mcg tablet PO SCH (08:00)
[2017-06-26] MEDS: K and/or MAG REPLACEMENT MC SCH (08:00)
[2017-06-26] MEDS: apixaban 5mg tablet PO SCH (08:00)
[2017-06-26] MEDS: potassium chloride 10mEq ER tablet PO SCH (08:00)
[2017-06-26] MEDS: simethicone 80mg chew tab PO SCH ×3 (08:00→21:32)
[2017-06-26] MEDS: predniSONE 20 mg tablet PO SCH (08:30)
[2017-06-26] MEDS: pantoprazole 40 MG vial IV SCH ×2 (08:45→19:06)
[2017-06-26] MEDS: proCHLORperazine 10 MG/2 ml inj IV PRN (08:47)
[2017-06-26] MEDS ORDERED: potassium Cl 20 mEq SR tablet PO PRN ×2 (09:40)
[2017-06-26] MEDS ORDERED: potassium Cl 40MEQ/NS 500ml 500 ML IV PRN (09:40)
[2017-06-26] MEDS ORDERED: magnesium 2GM in 50ml NS 50 ML IV PRN (09:40)
[2017-06-26] MEDS ORDERED: magnesium 4gm in 100ml NS 100 ML IV PRN (09:40)
[2017-06-26] MEDS ORDERED: magnesium Cl slow-release 64mg tablet PO PRN (09:40)
[2017-06-26] MEDS: levoFLOXACIN-Levaquin 750MG/D5 150 ML IV SCH (09:57)
[2017-06-26] MEDS ORDERED: LIDOcaine 1% 30ml vial 5 ML in potassium Cl 40MEQ/NS 500ml 500 ML IV ONE (10:35)
[2017-06-26] MEDS ORDERED: heparin 10,000 units/1 ML INJ IV ONE (10:45)
[2017-06-26 11:00] VITALS: BP 172/61
[2017-06-26 11:36] LABS: BASOPHILS % (AUTO) 0.3 % (0-1); EOSINOPHILS # (AUTO) 0.3 X10'3 (0-0.9); EOSINOPHILS % (AUTO) 2.7 % (0-6); HEMATOCRIT 33.9 % (42.0-52.0); LYMPHOCYTES # (AUTO) 1.1 X10'3 (1.1-4.8); MEAN CORPUSCULAR HEMOGLOBIN 27.2 PG (27.0-31.0); MEAN CORPUSCULAR HGB CONC 32.3 % (33.0-36.5); MEAN CORPUSCULAR VOLUME 84.1 FL (78-98); MEAN PLATELET VOLUME 7.3 FL (7.4-10.4); MONOCYTES # (AUTO) 0.7 X10'3 (0-0.9); MONOCYTES % (AUTO) 7.1 % (2-12); NEUTROPHILS # (AUTO) 8.2 X10'3 (1.8-7.7); NEUTROPHILS % (AUTO) 78.9 % (42-75); PLATELET COUNT 190 X10'3 (140-440); RED BLOOD COUNT 4.03 X10'6 (4.70-6.10); RED CELL DISTRIBUTION WIDTH 18.5 % (11.5-14.5); WHITE BLOOD COUNT 10.4 X10'3 (4.5-11.0)
[2017-06-26 11:41] LABS: INR 1.1 INR
[2017-06-26 15:00] VITALS: BP 142/63
[2017-06-26] MEDS: potassium Cl 40MEQ/NS 500ml 500 ML IV PRN (15:19)
[2017-06-26 19:00] VITALS: BP 149/54
[2017-06-26] MEDS: heparin 10,000 units/1 ML INJ IV PRN (19:11)
[2017-06-26] MEDS: temazepam 15mg capsule PO PRN (21:32)
[2017-06-26] MEDS: diatr meglu/diatrizoate 30ml oral sol.-(3 dose) bottle PO SCH (21:34)
[2017-06-26 23:00] VITALS: BP 158/65
[2017-06-27] MEDS: diltiazem 30mg tablet PO SCH ×4 (01:40→20:31)
[2017-06-27 02:00] LABS: BASOPHILS % (AUTO) 0.5 % (0-1); EOSINOPHILS # (AUTO) 0.3 X10'3 (0-0.9); EOSINOPHILS % (AUTO) 3.2 % (0-6); HEMATOCRIT 33.8 % (42.0-52.0); LYMPHOCYTES # (AUTO) 0.9 X10'3 (1.1-4.8); LYMPHOCYTES % (AUTO) 11.7 % (21-51); MEAN CORPUSCULAR HEMOGLOBIN 27.3 PG (27.0-31.0); MEAN CORPUSCULAR HGB CONC 32.6 % (33.0-36.5); MEAN CORPUSCULAR VOLUME 83.8 FL (78-98); MEAN PLATELET VOLUME 7.2 FL (7.4-10.4); MONOCYTES # (AUTO) 0.7 X10'3 (0-0.9); MONOCYTES % (AUTO) 8.2 % (2-12); NEUTROPHILS # (AUTO) 6.1 X10'3 (1.8-7.7); NEUTROPHILS % (AUTO) 76.4 % (42-75); PLATELET COUNT 177 X10'3 (140-440); RED BLOOD COUNT 4.03 X10'6 (4.70-6.10); RED CELL DISTRIBUTION WIDTH 19.1 % (11.5-14.5)
[2017-06-27 02:14] LABS: ALANINE AMINOTRANSFERASE 35 U/L (12-78); ALBUMIN 2.4 G/DL (3.4-5.0); ALKALINE PHOSPHATASE 51 IU/L (46-116); ANION GAP 10 (8-16); ASPARTATE AMINO TRANSFERASE 22 U/L (10-37); BILIRUBIN,TOTAL 0.5 MG/DL (0.1-1.0); BLOOD UREA NITROGEN 7 MG/DL (7-18); BUN/CREATININE RATIO 8.3 (5.4-32.0); CALCIUM 7.7 MG/DL (8.5-10.1); CHLORIDE 113 MMOL/L (99-107); CREATININE 0.84 MG/DL (0.60-1.10); GLUCOSE 104 MG/DL (70-104); MAGNESIUM 1.6 MG/DL (1.5-2.4); SODIUM 148 MMOL/L (135-145); TOTAL CARBON DIOXIDE 24.7 MMOL/L (24-32); TOTAL PROTEIN 4.9 G/DL (6.4-8.2); eGFR 89 ML/MIN
[2017-06-27 02:16] LABS: POTASSIUM 2.9 MMOL/L (3.5-5.1)
[2017-06-27] MEDS: normal saline 1000ml 1,000 ML IV SCH ×4 (02:50→20:32)
[2017-06-27 03:00] VITALS: BP 146/56
[2017-06-27] MEDS: ipratropium/albuterol 3ml nebule NEB SCH ×6 (03:00→23:00)
[2017-06-27] MEDS: potassium Cl 40MEQ/NS 500ml 500 ML IV PRN (03:05)
[2017-06-27] MEDS: heparin 10,000 units/1 ML INJ IV PRN (03:20)
[2017-06-27] MEDS: diatr meglu/diatrizoate 30ml oral sol.-(3 dose) bottle PO SCH ×2 (07:30→20:32)
[2017-06-27] MEDS: fluticasone/vilanterol 200mcg/25mcg inhaler IH SCH ×2 (07:42→10:34)
[2017-06-27 08:00] VITALS: BP 155/65
[2017-06-27] MEDS: simethicone 80mg chew tab PO SCH ×3 (08:00→20:31)
[2017-06-27] MEDS: tamsulosin 0.4mg capsule PO SCH (08:00)
[2017-06-27] MEDS: gabapentin 300mg capsule PO SCH ×4 (08:00→20:32)
[2017-06-27] MEDS: lactobacillus rhamnosus 10,000 MMU CELLS/CAPSULE PO SCH ×2 (08:00→20:31)
[2017-06-27] MEDS: busPIRone 5mg tablet PO SCH ×2 (08:00→20:00)
[2017-06-27] MEDS: K and/or MAG REPLACEMENT MC SCH (08:00)
[2017-06-27] MEDS: potassium chloride 10mEq ER tablet PO SCH (08:00)
[2017-06-27] MEDS: ondansetron/PF 4mg/2ml inj IV PRN ×2 (08:02→13:44)
[2017-06-27] MEDS ORDERED: iohexol 300mg/ml 100ml inj. ONE (09:21)
[2017-06-27] MEDS: predniSONE 20 mg tablet PO SCH (10:50)
[2017-06-27] MEDS: roflumilast 500mcg tablet PO SCH (10:50)
[2017-06-27] MEDS: pantoprazole 40 MG vial IV SCH ×2 (10:55→20:30)
[2017-06-27 11:00] VITALS: BP 148/75
[2017-06-27 15:00] VITALS: BP 165/62
[2017-06-27] MEDS ORDERED: benzocaine/menthol oral lozeng 1 EACH BOX MM PRN (16:30)
[2017-06-27 19:00] VITALS: BP 150/58
[2017-06-27] MEDS: proCHLORperazine 10 MG/2 ml inj IV PRN (19:26)
[2017-06-27] MEDS: temazepam 15mg capsule PO PRN (20:31)
[2017-06-27 23:00] VITALS: BP 144/61
[2017-06-28] MEDS: ondansetron/PF 4mg/2ml inj IV PRN ×2 (00:23→20:23)
[2017-06-28] MEDS: diltiazem 30mg tablet PO SCH ×4 (02:00→20:24)
[2017-06-28] MEDS: heparin 10,000 units/1 ML INJ IV PRN (02:03)
[2017-06-28 03:00] VITALS: BP 140/58
[2017-06-28] MEDS: normal saline 1000ml 1,000 ML IV SCH ×3 (03:21→18:50)
[2017-06-28] MEDS: ipratropium/albuterol 3ml nebule NEB SCH ×5 (03:25→22:42)
[2017-06-28 06:00] VITALS: BP 147/59
[2017-06-28] MEDS: fluticasone/vilanterol 200mcg/25mcg inhaler IH SCH (07:51)
[2017-06-28] MEDS: K and/or MAG REPLACEMENT MC SCH (08:00)
[2017-06-28] MEDS: roflumilast 500mcg tablet PO SCH (08:00)
[2017-06-28] MEDS: gabapentin 300mg capsule PO SCH ×3 (08:00→20:26)
[2017-06-28] MEDS: tamsulosin 0.4mg capsule PO SCH (08:23)
[2017-06-28] MEDS: pantoprazole 40 MG vial IV SCH ×2 (08:23→20:23)
[2017-06-28] MEDS: predniSONE 20 mg tablet PO SCH (08:23)
[2017-06-28] MEDS: lactobacillus rhamnosus 10,000 MMU CELLS/CAPSULE PO SCH ×2 (08:24→20:00)
[2017-06-28] MEDS: simethicone 80mg chew tab PO SCH ×3 (08:25→20:24)
[2017-06-28] MEDS: potassium chloride 10mEq ER tablet PO SCH (08:25)
[2017-06-28] MEDS: busPIRone 5mg tablet PO SCH ×2 (08:25→20:24)
[2017-06-28 08:50] LABS: BASOPHILS # (AUTO) 0.1 X10'3 (0-0.2); BASOPHILS % (AUTO) 0.6 % (0-1); EOSINOPHILS # (AUTO) 0.4 X10'3 (0-0.9); EOSINOPHILS % (AUTO) 3.6 % (0-6); HEMATOCRIT 33.7 % (42.0-52.0); HEMOGLOBIN 10.9 g/dl (14.0-17.9); LYMPHOCYTES # (AUTO) 1.4 X10'3 (1.1-4.8); MEAN CORPUSCULAR HEMOGLOBIN 27.2 PG (27.0-31.0); MEAN CORPUSCULAR HGB CONC 32.5 % (33.0-36.5); MEAN CORPUSCULAR VOLUME 83.7 FL (78-98); MEAN PLATELET VOLUME 7.2 FL (7.4-10.4); MONOCYTES # (AUTO) 0.9 X10'3 (0-0.9); MONOCYTES % (AUTO) 8.1 % (2-12); NEUTROPHILS # (AUTO) 8.1 X10'3 (1.8-7.7); NEUTROPHILS % (AUTO) 74.7 % (42-75); PLATELET COUNT 182 X10'3 (140-440); RED BLOOD COUNT 4.02 X10'6 (4.70-6.10); RED CELL DISTRIBUTION WIDTH 19.1 % (11.5-14.5); WHITE BLOOD COUNT 10.9 X10'3 (4.5-11.0)
[2017-06-28 09:08] LABS: ALANINE AMINOTRANSFERASE 30 U/L (12-78); ALBUMIN 2.4 G/DL (3.4-5.0); ALBUMIN/GLOBULIN RATIO 0.8 (1.1-1.5); ALKALINE PHOSPHATASE 53 IU/L (46-116); ANION GAP 10 (8-16); ASPARTATE AMINO TRANSFERASE 16 U/L (10-37); BILIRUBIN,TOTAL 0.5 MG/DL (0.1-1.0); BLOOD UREA NITROGEN 5 MG/DL (7-18); BUN/CREATININE RATIO 6.8 (5.4-32.0); CALCIUM 7.7 MG/DL (8.5-10.1); CHLORIDE 111 MMOL/L (99-107); CREATININE 0.73 MG/DL (0.60-1.10); GLUCOSE 95 MG/DL (70-104); MAGNESIUM 1.5 MG/DL (1.5-2.4); SODIUM 146 MMOL/L (135-145); TOTAL PROTEIN 5.4 G/DL (6.4-8.2); eGFR > 90 ML/MIN
[2017-06-28 09:11] LABS: POTASSIUM 2.8 MMOL/L (3.5-5.1)
[2017-06-28] MEDS ORDERED: magnesium 4gm in 100ml NS 100 ML IV PRN (09:20)
[2017-06-28] MEDS ORDERED: potassium Cl 20 mEq SR tablet PO PRN ×2 (09:20)
[2017-06-28] MEDS ORDERED: magnesium 2GM in 50ml NS 50 ML IV PRN (09:20)
[2017-06-28] MEDS ORDERED: potassium Cl 40MEQ/NS 500ml 500 ML IV PRN ×2 (09:20)
[2017-06-28] MEDS ORDERED: magnesium 2GM in 50ml NS 50 ML IV ONE (09:20)
[2017-06-28] MEDS ORDERED: LIDOcaine 1% 30ml vial 5 ML in potassium Cl 40MEQ/NS 500ml 500 ML IV PRN (09:35)
[2017-06-28] MEDS ORDERED: LIDOcaine 1% 30ml vial 5 ML in potassium Cl 40MEQ/NS 500ml 500 ML IV ONE ×5 (09:40→14:00)
[2017-06-28] MEDS ORDERED: BARIUM SULFATE 340 ML SUSP.RECON***PROCEDURE AREA ONLY**DONT ENTER PO ONE (09:58)
[2017-06-28] MEDS: ipratropium/albuterol 3ml nebule NEB PRN (11:34)
[2017-06-28 15:00] VITALS: BP 158/61
[2017-06-28 19:00] VITALS: BP 156/79
[2017-06-28] MEDS: apixaban 5mg tablet PO SCH (20:24)
[2017-06-28] MEDS: temazepam 15mg capsule PO PRN (20:24)
[2017-06-28 23:00] VITALS: BP 138/59
[2017-06-29] MEDS: normal saline 1000ml 1,000 ML IV SCH ×3 (01:30→14:50)
[2017-06-29 01:37] LABS: ALANINE AMINOTRANSFERASE 26 U/L (12-78); ALBUMIN 2.3 G/DL (3.4-5.0); ALBUMIN/GLOBULIN RATIO 0.9 (1.1-1.5); ALKALINE PHOSPHATASE 51 IU/L (46-116); ANION GAP 9 (8-16); ASPARTATE AMINO TRANSFERASE 14 U/L (10-37); BILIRUBIN,TOTAL 0.3 MG/DL (0.1-1.0); BLOOD UREA NITROGEN 5 MG/DL (7-18); BUN/CREATININE RATIO 6.2 (5.4-32.0); CALCIUM 7.9 MG/DL (8.5-10.1); CHLORIDE 113 MMOL/L (99-107); CREATININE 0.81 MG/DL (0.60-1.10); GLUCOSE 148 MG/DL (70-104); MAGNESIUM 1.8 MG/DL (1.5-2.4); POTASSIUM 3.3 MMOL/L (3.5-5.1); SODIUM 147 MMOL/L (135-145); TOTAL CARBON DIOXIDE 25.4 MMOL/L (24-32); TOTAL PROTEIN 4.9 G/DL (6.4-8.2); eGFR > 90 ML/MIN
[2017-06-29 02:01] LABS: BASOPHILS % (AUTO) 0.2 % (0-1); EOSINOPHILS # (AUTO) 0.1 X10'3 (0-0.9); EOSINOPHILS % (AUTO) 1.4 % (0-6); HEMATOCRIT 30.4 % (42.0-52.0); HEMOGLOBIN 10.1 g/dl (14.0-17.9); LYMPHOCYTES # (AUTO) 0.7 X10'3 (1.1-4.8); LYMPHOCYTES % (AUTO) 7.2 % (21-51); MEAN CORPUSCULAR HEMOGLOBIN 27.7 PG (27.0-31.0); MEAN CORPUSCULAR HGB CONC 33.2 % (33.0-36.5); MEAN CORPUSCULAR VOLUME 83.4 FL (78-98); MEAN PLATELET VOLUME 7.5 FL (7.4-10.4); MONOCYTES # (AUTO) 0.7 X10'3 (0-0.9); MONOCYTES % (AUTO) 7.3 % (2-12); NEUTROPHILS # (AUTO) 8.6 X10'3 (1.8-7.7); NEUTROPHILS % (AUTO) 83.9 % (42-75); PLATELET COUNT 185 X10'3 (140-440); RED BLOOD COUNT 3.64 X10'6 (4.70-6.10); WHITE BLOOD COUNT 10.3 X10'3 (4.5-11.0)
[2017-06-29 03:00] VITALS: BP 168/65
[2017-06-29] MEDS: diltiazem 30mg tablet PO SCH ×4 (03:29→20:52)
[2017-06-29] MEDS ORDERED: potassium Cl 40MEQ/NS 500ml 500 ML IV ONE (03:35)
[2017-06-29] MEDS: ipratropium/albuterol 3ml nebule NEB SCH ×5 (03:40→19:11)
[2017-06-29 06:00] VITALS: BP 167/64
[2017-06-29] MEDS: fluticasone/vilanterol 200mcg/25mcg inhaler IH SCH (07:10)
[2017-06-29] MEDS: K and/or MAG REPLACEMENT MC SCH (08:00)
[2017-06-29] MEDS: busPIRone 5mg tablet PO SCH ×2 (08:00→20:00)
[2017-06-29] MEDS: gabapentin 300mg capsule PO SCH ×4 (08:00→20:53)
[2017-06-29] MEDS: lactobacillus rhamnosus 10,000 MMU CELLS/CAPSULE PO SCH ×2 (08:00→20:52)
[2017-06-29] MEDS: pantoprazole 40 MG vial IV SCH ×2 (08:46→20:51)
[2017-06-29] MEDS: roflumilast 500mcg tablet PO SCH (08:47)
[2017-06-29] MEDS: apixaban 5mg tablet PO SCH ×2 (08:49→20:00)
[2017-06-29] MEDS: tamsulosin 0.4mg capsule PO SCH (08:49)
[2017-06-29] MEDS: potassium chloride 10mEq ER tablet PO SCH (08:50)
[2017-06-29] MEDS: simethicone 80mg chew tab PO SCH ×3 (08:50→20:52)
[2017-06-29] MEDS: predniSONE 20 mg tablet PO SCH (08:51)
[2017-06-29 10:33] LABS: ALBUMIN 2.3 G/DL (3.4-5.0); ANION GAP 9 (8-16); BLOOD UREA NITROGEN 5 MG/DL (7-18); BUN/CREATININE RATIO 6.6 (5.4-32.0); CHLORIDE 112 MMOL/L (99-107); CREATININE 0.76 MG/DL (0.60-1.10); GLUCOSE 136 MG/DL (70-104); POTASSIUM 3.5 MMOL/L (3.5-5.1); SODIUM 148 MMOL/L (135-145); TOTAL CARBON DIOXIDE 27.1 MMOL/L (24-32); eGFR > 90 ML/MIN
[2017-06-29 11:00] VITALS: BP 105/63
[2017-06-29] MEDS ORDERED: ANUHCR RC (11:54)
[2017-06-29 15:00] VITALS: BP 105/60
[2017-06-29 17:53] LABS: HEMATOCRIT 33.8 % (42.0-52.0); MEAN CORPUSCULAR HEMOGLOBIN 27.2 PG (27.0-31.0); MEAN CORPUSCULAR HGB CONC 32.6 % (33.0-36.5); MEAN CORPUSCULAR VOLUME 83.5 FL (78-98); MEAN PLATELET VOLUME 7.2 FL (7.4-10.4); PLATELET COUNT 212 X10'3 (140-440); RED BLOOD COUNT 4.05 X10'6 (4.70-6.10); RED CELL DISTRIBUTION WIDTH 19.4 % (11.5-14.5); WHITE BLOOD COUNT 12.4 X10'3 (4.5-11.0)
== END 2017-06-29 21:09 | DRG 871 ==
LOC: ER 11:51 → ED HOLD 13:53 → EDBEDREQTM 15:06 → PCU 3S 15:45
PROVIDERS: ADMIT Family Medicine; ATTEND Family Medicine
PROC: 5A09357 Assistance with Respiratory Ventilation, Less than 24 Consecutive Hours, Continuous Positive Airway Pressure (ICD-10-PCS; principal; 2017-06-18)
PROC: B32T1ZZ Computerized Tomography (CT Scan) of Left Pulmonary Artery using Low Osmolar Contrast (ICD-10-PCS; 2017-06-18)
PROC: B3201ZZ Computerized Tomography (CT Scan) of Thoracic Aorta using Low Osmolar Contrast (ICD-10-PCS; 2017-06-18)
PROC: B32S1ZZ Computerized Tomography (CT Scan) of Right Pulmonary Artery using Low Osmolar Contrast (ICD-10-PCS; 2017-06-18)
PROC: BW201ZZ Computerized Tomography (CT Scan) of Abdomen using Low Osmolar Contrast (ICD-10-PCS; 2017-06-19)
PROC: BD11YZZ Fluoroscopy of Esophagus using Other Contrast (ICD-10-PCS; 2017-06-28)
DX: A41.9 Sepsis, unspecified organism (principal); I50.23 Acute on chronic systolic (congestive) heart failure; J96.21 Acute and chronic respiratory failure with hypoxia; I13.0 Hypertensive heart and chronic kidney disease with heart failure and stage 1 through stage 4 chronic kidney disease, or unspecified chronic kidney disease; J18.1 Lobar pneumonia, unspecified organism; I31.3 Pericardial effusion (noninflammatory); I48.91 Unspecified atrial fibrillation; J44.0 Chronic obstructive pulmonary disease with (acute) lower respiratory infection; Z79.01 Long term (current) use of anticoagulants; I25.10 Atherosclerotic heart disease of native coronary artery without angina pectoris; D35.02 Benign neoplasm of left adrenal gland; G89.29 Other chronic pain; K52.9 Noninfective gastroenteritis and colitis, unspecified; M54.9 Dorsalgia, unspecified; E87.6 Hypokalemia; N18.9 Chronic kidney disease, unspecified; Z53.9 Procedure and treatment not carried out, unspecified reason; Z95.1 Presence of aortocoronary bypass graft; Z79.51 Long term (current) use of inhaled steroids; Z79.899 Other long term (current) drug therapy; Z79.52 Long term (current) use of systemic steroids; Z88.1 Allergy status to other antibiotic agents; Z88.5 Allergy status to narcotic agent; Z88.8 Allergy status to other drugs, medicaments and biological substances; Z87.891 Personal history of nicotine dependence; Z80.1 Family history of malignant neoplasm of trachea, bronchus and lung; Z82.49 Family history of ischemic heart disease and other diseases of the circulatory system
CPT/HCPCS: 36415; 36600; 71045; 71275; 74018; 74177; 74178; 74220; 76700; 80047; 80048; 80053; 81001; 82803; 83605; 83735; 83880; 84132; 84484; 85018; 85025; 85027; 85610; 85730; 87040; 87324; 87449; 93005; 93306; 93970; 93975; 94640; 94660; 94668; 94760; 96365; 96375; 97116; 97162; 97530; 99291; A4315; A6250; A6258; C9113; J0690; J0780; J1644; J1940; J1956; J2060; J2405; J2543; J2765; J2930; J3475; J3480; J3490; J7030; J7512; Q9963; Q9967